=== PATIENT | male | born 1995 | race Two or more races ===

== ENCOUNTER 2019-08-26 02:23 | Emergency (ER) | payer MEDICAID, MEDICARE, OTHER, SELFPAY ==
[~2019-08-26] VITALS: Ht 172.7 cm; Wt 88.1 kg
--- NOTE | 2019-08-26 02:47 | NUR ---
PT CALLED FOR TRIAGE NIL X 1. PT IN BATHROOM
--- NOTE | 2019-08-26 04:07 | NUR ---
Wound prep completed by public aid eligibility assistant.
[2019-08-26] MEDS ORDERED: PROMETHAZINE 25 MG/ML, 1ML ONE (05:25)
[2019-08-26] MEDS ORDERED: PROMETHAZINE 25 MG/ML, 1ML IM STA (05:28)
[2019-08-26] MEDS ORDERED: ONDANSETRON 2MG/ML, 2ML ONE (05:56)
[2019-08-26] MEDS ORDERED: SODIUM CHLORIDE FLUSH 10ML SYR IVF ONE (06:00)
[2019-08-26] MEDS ORDERED: SODIUM CHLORIDE 0.9% 1,000ML IVBOLUS ONE (06:00)
[2019-08-26] MEDS ORDERED: ONDANSETRON 2MG/ML, 2ML IVPush ONE (06:00)
--- NOTE | 2019-08-26 06:52 | NUR ---
ASSUMING PT CARE AT THIS TIME. PT SLEEPING ON GURNEY. OBVIOUS BILATERAL BLACK EYES AND EDEMA. BILATERAL EYEBROW LAC, BOTH SUTURED. NADN. FRIEND BEDSIDE.
--- NOTE | 2019-08-26 08:08 | NUR ---
PT CONTINUES TO SLEEP ON GURNEY. NADN. RESPS EQUAL AND UNLABORED. GIRLFRIEND BEDSIDE. WILL CONTINUE TO MONITOR.
[2019-08-26 09:01] VITALS: BP 109/50
--- NOTE | 2019-08-26 09:02 | NUR ---
PT CONTINUES TO SLEEP ON GURNEY. NADN. RESPS EQUAL AND UNLABORED. GIRLFRIEND BEDSIDE. MTF. WILL CONTINUE TO MONITOR.
--- NOTE | 2019-08-26 09:54 | NUR ---
LATE ENTRY [facility] 0945 PT AMBULATORY WITH STEADY GAIT. MEETAN.
--- NOTE | 2019-08-26 09:54 | NUR ---
Patient/Caregiver given discharge instructions and they have confirmed that they understand the instructions. Patient ambulatory with steady gait. PT LEFT WITH ALL PERSONAL BELONGINGS. PIV D/C WITH TIP INTACT PRESSURE DRESSING APPLIED.
== END 2019-08-26 09:57 | disposition home or self-care (01) ==
LOC: ED 07:32
DX: S02.31XA Fracture of orbital floor, right side, initial encounter for closed fracture (principal); S02.2XXA Fracture of nasal bones, initial encounter for closed fracture; S01.81XA Laceration without foreign body of other part of head, initial encounter; F10.129 Alcohol abuse with intoxication, unspecified; Y04.8XXA Assault by other bodily force, initial encounter; Y93.89 Activity, other specified; Y92.89 Other specified places as the place of occurrence of the external cause; Y99.8 Other external cause status
CPT/HCPCS: 12052; 70450; 70486; 96361; 96372; 96374; 99285; J2405; J2550; J7030